=== PATIENT | female | born 1960 | race Two or more races ===

== ENCOUNTER → 2018-06-10 | Outpatient (CLI) | payer MEDICARE, MEDICAID ==
[~2018-06-10] VITALS: Ht 160 cm; Wt 100.5 kg
[~2018-06-10] MED LIST: CYAN100072 PO; FERR325T24 PO; HYDR25TA PO; LEVO150 PO; LISI-661 PO; METF500T6 PO; METO50 PO; OXYB5 PO; PANT40TA25 PO; PRAV40TA4 PO
[2018-06-10 11:08] VITALS: BP 139/68
== END | disposition home or self-care (01) ==
LOC: SRCNTR 11:00
PROVIDERS: ATTEND Internal Medicine Critical Care Medicine
DX: J45.998 Other asthma (principal); G47.33 Obstructive sleep apnea (adult) (pediatric); E66.01 Morbid (severe) obesity due to excess calories; E11.9 Type 2 diabetes mellitus without complications; I10 Essential (primary) hypertension; E78.5 Hyperlipidemia, unspecified; K76.0 Fatty (change of) liver, not elsewhere classified
CPT/HCPCS: G0463

== ENCOUNTER → 2018-07-08 | Outpatient (CLI) | payer MEDICARE, MEDICAID ==
[~2018-07-08] VITALS: Ht 160 cm; Wt 93.5 kg
[~2018-07-08] MED LIST changes: +CETI-290 PO; +MONT10TA21 PO
[2018-07-08 15:04] VITALS: BP 143/75
== END | disposition home or self-care (01) ==
LOC: SRCNTR 14:48
PROVIDERS: ATTEND Internal Medicine Critical Care Medicine
DX: J43.9 Emphysema, unspecified (principal); G47.33 Obstructive sleep apnea (adult) (pediatric); E66.01 Morbid (severe) obesity due to excess calories; E11.9 Type 2 diabetes mellitus without complications; I10 Essential (primary) hypertension; E78.5 Hyperlipidemia, unspecified; E03.9 Hypothyroidism, unspecified; K76.0 Fatty (change of) liver, not elsewhere classified
CPT/HCPCS: G0463

== ENCOUNTER → 2018-08-19 | Outpatient (CLI) | payer MEDICARE, MEDICAID ==
[~2018-08-19] VITALS: Ht 160 cm; Wt 92.8 kg
[~2018-08-19] MED LIST changes: +ADV500 IH; +METF-960 PO; -METF500T6 PO; +TIOT4MIS2 IH
[2018-08-19 14:05] VITALS: BP 137/75
== END | disposition home or self-care (01) ==
LOC: SRCNTR 14:01
PROVIDERS: ATTEND Internal Medicine Critical Care Medicine
DX: G47.33 Obstructive sleep apnea (adult) (pediatric) (principal); J43.9 Emphysema, unspecified; E66.01 Morbid (severe) obesity due to excess calories; E11.9 Type 2 diabetes mellitus without complications; I10 Essential (primary) hypertension; E78.5 Hyperlipidemia, unspecified; E03.9 Hypothyroidism, unspecified; K76.0 Fatty (change of) liver, not elsewhere classified
CPT/HCPCS: G0463

== ENCOUNTER → 2018-10-16 | Outpatient (CLI) | payer MEDICARE, MEDICAID ==
[~2018-10-16] VITALS: Ht 160 cm; Wt 92.5 kg
[~2018-10-16] MED LIST changes: -LISI-661 PO; -PANT40TA25 PO
[2018-10-16 15:29] VITALS: BP 140/69
== END | disposition home or self-care (01) ==
LOC: SRCNTR 15:20
PROVIDERS: ATTEND Internal Medicine Critical Care Medicine
DX: J43.9 Emphysema, unspecified (principal); G47.33 Obstructive sleep apnea (adult) (pediatric); E66.01 Morbid (severe) obesity due to excess calories; E11.9 Type 2 diabetes mellitus without complications; I10 Essential (primary) hypertension; E78.5 Hyperlipidemia, unspecified; E03.9 Hypothyroidism, unspecified; K76.0 Fatty (change of) liver, not elsewhere classified; R05 Cough
CPT/HCPCS: G0463